=== PATIENT | male | born 1940 | race Two or more races ===

== ENCOUNTER 2016-11-11 15:42 | Emergency (ER) | payer MEDICARE ==
[2016-11-11] MEDS ORDERED: IOPAMIDOL 370 (76%) IV.SOLN 150 ML IV ONE (15:43)
[2016-11-11 16:37] LABS: ABSOLUTE NEUTROPHIL COUNT 7.3 K/mm3 (1.8-7.7); BASO % 0.4 % (0.2-1.0); HEMATOCRIT 37.2 % (32.0-52.0); HEMOGLOBIN 12.5 gm/l (14.0-18.0); IMM NEUT% 0.5 % (0-1); LYMPH # 0.7 (1.0-4.8); LYMPH % 8.7 % (15-45); MEAN CELL VOLUME 87.7 fl (80.0-94.0); MEAN CORPUSCULAR HEMOGLOBIN 29.5 pg (27.0-31.0); MEAN CORPUSCULAR HGB CONC 33.6 g/dl (33.0-37.0); MEAN PLATELET VOLUME 10.4 fl (7.4-10.4); MONO # 0.4 (0.0-0.8); MONO % 4.7 % (4-12); NEUT % 85.7 % (43-75); PLATELET COUNT 267 K/mm3 (130-400); RED CELL DISTRIBUTION WIDTH 12.6 % (11.5-14.5)
[2016-11-11 16:40] LABS: ALB/GLOB RATIO 1.1 (>1.0); ALBUMIN 3.6 gm/dL (3.5-5.7)
[2016-11-11 16:44] LABS: TROPONIN I < 0.01 ng/ml (0.0-0.06)
[2016-11-11 16:48] LABS: CKMB ISOENZYME 4.3 ng/ml (0.6-6.3)
[2016-11-11 17:58] LABS: PH,URINE 6.5 (5.0-8.0); SPECIFIC GRAVITY 1.015 (1.001-1.030); URINE BILIRUBIN NEGATIVE (NEGATIVE); URINE BLOOD 1+ (NEGATIVE); URINE GLUCOSE (UA) 3+ (NEGATIVE); URINE LEUKOCYTE ESTERASE NEGATIVE (NEGATIVE); URINE NITRITE NEGATIVE (NEGATIVE); URINE PROTEIN 3+ (NEGATIVE); URINE UROBILINOGEN NORMAL (0-1 mg/dl)
[2016-11-11 17:59] LABS: URINE APPEARANCE SL CLOUDY; URINE COLOR YELLOW
[2016-11-11 18:10] LABS: URINE BACTERIA 0; URINE EPITHELIAL CELLS RARE /hpf; URINE RBC 0-2 /hpf; URINE WBC 0-2 /hpf
--- NOTE | 2016-11-11 18:31 | CT ---
CHEST CTA WITH CONTRAST ABDOMEN PELVIS CTA WITH CONTRAST HISTORY: Left-sided chest pain and vomiting. TECHNIQUE: Following the administration of 150 mL Isovue-300 intravenous contrast, contiguous axial images were acquired from the thoracic inlet to the ischial tuberosities. COMPARISON: None. FINDINGS: THORAX LUNGS: No gross airspace abnormality. No pleural effusion. Pulmonary arteries demonstrate no obvious defect. DEBBI AND MEDIASTINUM: Aortopulmonary window node measures 10 mm in thickness, borderline enlargement. Moderate coronary artery calcifications are noted. Normal thoracic aortic caliber without aneurysmal dilatation. Minor gas within the distal esophagus. AXILLAE: No grossly enlarged lymph nodes. SUPRACLAVICULAR FOSSAE: No enlarged lymph nodes. ABDOMEN AND PELVIS LIVER AND SPLEEN: No focal lesion detected. ADRENAL GLANDS AND PANCREAS: Grossly unremarkable. KIDNEYS: No focal renal lesion. No collecting system dilatation. GALLBLADDER: Present. BOWEL: Fluid within the rectum. There is an appearance enhancing lesion along the anterior aspect of the rectum which measures 3.6 x 4.5 x 4.0 cm in size, worrisome for possible neoplasm, recommend endoscopic correlation. Portions of the distal colon are limited in assessment due to decompression. No abnormal small bowel dilatation. A nondilated appendix is noted. PELVIC ORGANS: Nonspecific bladder wall thickening. Prostatomegaly, prostate gland measures 5.6 cm in size. FREE FLUID: No gross free fluid identified. ABDOMINOPELVIC LYMPH NODES: Portacaval lymph node measures 10 mm in size. Celiac lymph node measures 12 mm in size. ABDOMINAL AORTA: Minor atherosclerotic calcifications. No aneurysmal dilatation. OSSEOUS STRUCTURES: Findings of lumbar spondylosis with prominent canal stenosis at the L3-4 and L4-5 levels. IMPRESSION: 1. No evidence of aortic aneurysm or aortic dissection. Moderate coronary artery calcifications. 2. 4.5 cm rectal mass lesion worrisome for possible malignancy, recommend endoscopic correlation. 3. Prostatomegaly. Bladder wall thickening may indicate cystitis or outflow obstruction. 4. Mild prominence of scattered mediastinal and upper abdominal lymph nodes, of uncertain significance. 5. Lumbar spondylosis with canal stenosis at L3-4 and L4-5 levels. 6. Small hiatal hernia. Gas within the esophagus could relate to relative obstruction or reflux. Findings discussed with Dr. Lazaro of the Emergency Medicine clinical service on 11/11/2016 1827 hours.
[2016-11-11] MEDS ORDERED: ONDANSETRON 4 MG/2ML 2 ML VIAL ONE (19:09)
[2016-11-11] MEDS ORDERED: SODIUM CHLORIDE 0.9% 1,000 ML ONE (19:12)
== END 2016-11-11 20:38 | disposition home or self-care (01) ==
LOC: ED 15:42
DX: R10.9 Unspecified abdominal pain (principal); R07.9 Chest pain, unspecified; R11.10 Vomiting, unspecified; K62.9 Disease of anus and rectum, unspecified
CPT/HCPCS: 83690; 85025; 82550; 82553; 80053; 84484; 81001; 74174; 71275; 99284 ×2; 96374; 96361; J2405; J7030; Q9967

== ENCOUNTER 2016-12-03 13:50 | Day surgery (SDC) | payer MEDICARE ==
[2016-12-03] MEDS ORDERED: ENEMA--adult 1 EACH PR PRN (15:02)
[2016-12-03] MEDS ORDERED: IV START KIT ONE (15:08)
[2016-12-03] MEDS ORDERED: SODIUM CHLORIDE 0.9% 1,000 ML ONE ×2 (15:09→16:34)
[2016-12-03] MEDS ORDERED: FENTANYL 250 MCG/5 ML AMP ONE (16:10)
[2016-12-03] MEDS ORDERED: PROPOFOL 20 ML IV ONE ×3 (16:10→17:41)
[2016-12-03] MEDS ORDERED: ONDANSETRON 4 MG/2ML 2 ML VIAL IV ONE (17:41)
[2016-12-03] MEDS ORDERED: SODIUM CHLORIDE 0.9% 1,000 ML IV SCH (17:45)
--- NOTE | 2016-12-08 12:31 | SURGPATH ---
[facility] [address] [place] [id number] Patient Name: VIOLETTA CORLEY JR MR#: [id number] : 1940 Gender: M Specimen #: [id number] Collected: 12/03/2016 Received: 12/07/2016 Reported: 12/08/2016 Submitting Phys: JACINTO GANNON Copy To Phys: ANA LILIA RAYO [facility] Clinical History / Pre-Operative Diagnosis: Rectal mass Specimen Source / Surgical Procedure Performed: #1 sigmoid polyp 25 cm, #2 rectal mass Interpretation: 1. SIGMOID COLON, POLYP AT 25 CM, BIOPSY: - TUBULAR ADENOMA 2. RECTAL MASS, BIOPSY: - VILLOUS ADENOMA WITH HIGH-GRADE DYSPLASIA Electronically Signed Out Shani Monge M.D. Gross Description: 1. The specimen is received in formalin labeled with the patient's name and "sigmoid polyp". The specimen consists of a 0.6 x 0.4 x 0.3 cm fragment of waggoner soft tissue. The specimen is bisected and entirely submitted in one cassette. 2. The specimen is received in formalin labeled with the patient's name and "rectal mass tissue marked. The specimen consists of a 4.0 x 4.0 x 2.0 cm aggregate of friable waggoner soft tissue fragments. Orientation cannot be determined. 2A-H. entire specimen TAB Garcia Microscopic Description: 1. Sections show fragments of adenomatous colonic mucosa without high grade dysplasia. 2. Sections show a large villous adenoma. Areas of high-grade dysplasia are seen within the polyp, but no invasion is identified. 1: 96229 2: 95852 D12.8
== END 2016-12-03 18:58 | disposition home or self-care (01) ==
LOC: SDC 13:50
PROVIDERS: ATTEND Surgery
PROC: 0DBP8ZX Excision of Rectum, Via Natural or Artificial Opening Endoscopic, Diagnostic (ICD-10-PCS; principal; 2016-12-03)
PROC: 0DBN8ZX Excision of Sigmoid Colon, Via Natural or Artificial Opening Endoscopic, Diagnostic (ICD-10-PCS; 2016-12-03)
DX: D12.8 Benign neoplasm of rectum (principal); D12.5 Benign neoplasm of sigmoid colon; E78.5 Hyperlipidemia, unspecified; E11.9 Type 2 diabetes mellitus without complications; Z79.84 Long term (current) use of oral hypoglycemic drugs; Z79.82 Long term (current) use of aspirin
CPT/HCPCS: 93005; 45385; J3010; A9270; J7030 ×2

== ENCOUNTER 2017-01-15 10:46 | Inpatient (IN) | payer MEDICARE ==
[2017-01-15] MEDS ORDERED: METHYLENE BLUE 1% 1ML VIAL ONE (10:47)
[2017-01-15] MEDS ORDERED: ACETAMINOPHEN 500 MG TABLET PO ONE (11:00)
[2017-01-15] MEDS ORDERED: ERTAPENEM SODIUM 1 G in NS 0.9% (MINI-BAG PLUS) 50 ML IV PRN (11:00)
[2017-01-15] MEDS ORDERED: CELECOXIB 200 MG CAPSULE PO ONE (11:00)
[2017-01-15] MEDS ORDERED: GABAPENTIN 600 MG TABLET PO ONE (11:00)
[2017-01-15] MEDS ORDERED: CELECOXIB 200 MG CAPSULE ONE (11:47)
[2017-01-15] MEDS ORDERED: GABAPENTIN 600 MG TABLET ONE (11:47)
[2017-01-15] MEDS ORDERED: ACETAMINOPHEN 500 MG TABLET ONE (11:48)
[2017-01-15] MEDS ORDERED: FENTANYL 250 MCG/5 ML AMP ONE ×2 (12:05→15:21)
[2017-01-15] MEDS ORDERED: MIDAZOLAM HCL 5 MG/5 ML VIAL ONE (12:05)
[2017-01-15] MEDS ORDERED: KETAMINE HCL UD SYRINGE 100 MG/2 ML IV ONE (12:13)
[2017-01-15] MEDS ORDERED: INSULIN REGULAR HUMAN (DOSE) 100 UNITS/1 ML SUB-Q ONE (12:30)
[2017-01-15] MEDS ORDERED: INSULIN REGULAR HUMAN (DOSE) 100 UNITS/1 ML ONE (12:38)
[2017-01-15] MEDS ORDERED: EPHEDRINE SULFATE UD SYR 25 MG 25 MG/5 ML SYRINGE IV ONE ×2 (13:08→17:57)
[2017-01-15] MEDS ORDERED: DEXAMETHASONE SOD PHOS 4 MG/1 ML VIAL ONE (13:10)
[2017-01-15] MEDS ORDERED: DIPHENHYDRAMINE HCL 50 MG/1 ML VIAL ONE (13:10)
[2017-01-15] MEDS ORDERED: PROPOFOL 20 ML IV ONE (13:10)
[2017-01-15] MEDS ORDERED: LIDOCAINE 2% (MULTI DOSE) 10 ML VIAL ONE (13:10)
[2017-01-15] MEDS ORDERED: ROCURONIUM BROMIDE 10 MG/ML DOSE IV ONE ×4 (13:10→19:59)
[2017-01-15] MEDS ORDERED: PHENYLEPHRINE 10 MG/1 ML (1%) VIAL ONE (13:11)
[2017-01-15] MEDS ORDERED: FENTANYL 100 MCG/2 ML VIAL IV PRN (13:29)
[2017-01-15] MEDS ORDERED: NALOXONE HCL 0.4 MG/ML VIAL IV PRN (13:29)
[2017-01-15] MEDS ORDERED: ONDANSETRON 4 MG/2ML 2 ML VIAL IV PRN (13:29)
[2017-01-15] MEDS ORDERED: PROMETHAZINE HCL 25 MG/ML VIAL IM PRN (13:29)
[2017-01-15] MEDS ORDERED: HYDROMORPHONE HCL 1 MG/ML SYRINGE IV PRN (13:29)
[2017-01-15] MEDS ORDERED: ATROPINE SULFATE 0.4 MG/1 ML VIAL IV PRN (13:29)
[2017-01-15] MEDS ORDERED: LACTATED RINGERS 1,000 ML IV SCH ×2 (13:30→22:42)
[2017-01-15] MEDS ORDERED: BUPIVACAINE 0.5% W/EPI SDV 30 ML VIAL ONE (13:47)
[2017-01-15] MEDS ORDERED: HYDROMORPHONE HCL 2 MG/ML SYRINGE ONE (14:16)
[2017-01-15] MEDS ORDERED: MORPHINE SULFATE 10 MG/ML SYRINGE ONE (20:02)
[2017-01-15] MEDS ORDERED: GLYCOPYRROLATE 0.2 MG/ML 1ML VIAL ONE (20:16)
[2017-01-15] MEDS ORDERED: NEOSTIGMINE METHYLSULFATE 1 MG/ML DOSE ONE (20:16)
[2017-01-15] MEDS ORDERED: MENTHOL/CETYLPYRD 1 EACH LOZENGE PO PRN (22:42)
[2017-01-15] MEDS ORDERED: INSULIN ASPART (DOSE) 100 UNITS/1 ML SUB-Q PRN (22:42)
[2017-01-15] MEDS ORDERED: HYDROMORPHONE PCA (MONOJECT) 12 MG/30 ML INJ.SOLN IV SCH (22:42)
[2017-01-15] MEDS ORDERED: BLISTEX LIPSTICK 1 EACH TP PRN (22:42)
[2017-01-15 23:19] VITALS: BMI 30.1
[2017-01-15] MEDS ORDERED: GABAPENTIN 600 MG TABLET PO SCH (23:37)
[2017-01-15 23:54] VITALS: BP 136/64
[2017-01-16] MEDS ORDERED: HYDROMORPHONE IV ONE
[2017-01-16] MEDS ORDERED: SODIUM CHLORIDE IV ONE
[2017-01-16] MEDS ORDERED: ACETAMINOPHEN 500 MG TABLET PO SCH (00:01)
[2017-01-16] MEDS ORDERED: SODIUM CHLORIDE IV SCH (00:01)
[2017-01-16] MEDS ORDERED: HYDROMORPHONE IV SCH (00:01)
[2017-01-16] MEDS ORDERED: ONDANSETRON 4 MG/2ML 2 ML VIAL IV PRN (02:00)
[2017-01-16] MEDS ORDERED: ENOXAPARIN SODIUM 40 MG/0.4 ML SYRINGE SUB-Q SCH (19:00)
== END 2017-01-15 23:59 | disposition still patient (30) | DRG 331 ==
LOC: OR 10:46 → MS 22:37
PROVIDERS: ADMIT Surgery; ATTEND Surgery
PROC: 0DTP0ZZ Resection of Rectum, Open Approach (ICD-10-PCS; principal; 2017-01-15)
PROC: 0DTN0ZZ Resection of Sigmoid Colon, Open Approach (ICD-10-PCS; 2017-01-15)
PROC: 0D1B0Z4 Bypass Ileum to Cutaneous, Open Approach (ICD-10-PCS; 2017-01-15)
DX: C20 Malignant neoplasm of rectum (principal)